=== PATIENT | female | born 1980 | race Two or more races ===

== ENCOUNTER 2020-05-17 21:09 | Emergency (ER) | payer SELFPAY ==
[~2020-05-17] VITALS: Ht 152.4 cm; Wt 104.3 kg
[~2020-05-17 21:09] MED LIST: ACET325; ACET325 PO; ALBU90OI INH; ATOR40TA PO; CEPH500 PO; Cleocin HCl150 MG PO; Coumadin10 MG PO; HYDACE5 PO; HYDMOR2; HYDR1TAB94 PO; IBUP600 PO; METPRE4DP PO; NAPR500 PO; Naprosyn500 MG PO; Norco 5-325 Ta1 EACH PO; ONDA4ODT MM; OXYACE5T PO; PROACE100 PO; PROC10 PO; PROC5 PO; PROM25 PO; Percocet 5-3251 EACH PO; Phenergan25 M1 PO; Prednisone20 MG PO; RXOXYACE PO; WARF10 PO; WARF3 PO; XARELTO20 MG PO; Zithromax250 MG PO
== END 2020-05-18 00:05 | disposition home or self-care (01) ==
LOC: ER 21:09
DX: M79.601 Pain in right arm (principal); F17.210 Nicotine dependence, cigarettes, uncomplicated; Z91.041 Radiographic dye allergy status; Z88.0 Allergy status to penicillin; Z91.018 Allergy to other foods; Z91.012 Allergy to eggs; Z79.52 Long term (current) use of systemic steroids; Z79.01 Long term (current) use of anticoagulants; Z79.899 Other long term (current) drug therapy; W22.8XXA Striking against or struck by other objects, initial encounter
CPT/HCPCS: 73110; 73130; 99283-25; A9270

== ENCOUNTER 2021-08-23 09:16 | Emergency (ER) | payer OTHER ==
[~2021-08-23] VITALS: Ht 152.4 cm; Wt 99.8 kg
[2021-08-23] MEDS ORDERED: PSEUDOEPHEDRINE30 M1 PO (10:53)
[2021-08-23] MEDS ORDERED: ALBU90OI INH (10:53)
[2021-08-23] MEDS ORDERED: CODEINE-GUAIFE120 M1 PO (10:53)
== END 2021-08-23 11:13 | disposition home or self-care (01) ==
LOC: ER 09:16
DX: J06.9 Acute upper respiratory infection, unspecified (principal); Z88.0 Allergy status to penicillin

== ENCOUNTER 2021-10-11 22:42 | Emergency (ER) | payer OTHER ==
[~2021-10-11] VITALS: Ht 157.5 cm; Wt 104.3 kg
[~2021-10-11 22:42] MED LIST changes: +CODEINE-GUAIFE120 M1 PO; +PSEUDOEPHEDRINE30 M1 PO
[2021-10-11] MEDS ORDERED: HYDR1TAB94 PO (23:54)
[2021-10-12] MEDS ORDERED: CRUTCH3 XX (00:05)
== END 2021-10-12 00:35 | disposition home or self-care (01) ==
LOC: ER 22:42
DX: S83.91XA Sprain of unspecified site of right knee, initial encounter (principal); Z88.0 Allergy status to penicillin; Z91.048 Other nonmedicinal substance allergy status; Z91.018 Allergy to other foods; Z91.012 Allergy to eggs; F17.200 Nicotine dependence, unspecified, uncomplicated; W19.XXXA Unspecified fall, initial encounter
CPT/HCPCS: 29505; 73130; 73562-RT; 99283-25; A9270

== ENCOUNTER 2022-01-23 16:19 | Emergency (ER) | payer OTHER ==
[~2022-01-23] VITALS: Ht 152.4 cm; Wt 117.9 kg
[~2022-01-23 16:19] MED LIST changes: +CRUTCH3 XX
[2022-01-23 17:30] LABS: Albumin, Blood 3.4 g/dL (3.4-5.0); Albumin/Globulin Ratio 0.8 (0.8-1.8); Bilirubin, Total 0.3 mg/dL (0.1-1.0); Calcium, Blood 8.7 mg/dL (8.5-10.1); Creatinine, Blood 0.47 mg/dL (0.40-1.00); Globulin, Blood 4.3 g/dL (2.2-4.0); Potassium, Blood 4.3 mmol/L (3.5-5.5); Total Protein, Blood 7.7 g/dL (6.4-8.2)
[2022-01-23 17:39] LABS: BASOPHILS ABSOLUTE AUTO 0.02 K/mm3 (0.00-0.23); BASOPHILS PERCENT AUTO 0 % (0-2); EOSINOPHILS ABSOLUTE AUTO 0.04 K/mm3 (0.00-0.68); EOSINOPHILS PERCENT AUTO 0 % (0-6); Hematocrit 37.3 % (33.0-51.0); Hemoglobin 12.3 g/dL (11.5-16.0); IMMATURE GRAN ABSOLUTE AUTO 0.03 K/mm3 (0.00-0.10); IMMATURE GRAN PERCENT AUTO 0 % (0-1); LYMPHOCYTES PERCENT AUTO 31 % (21-46); MONOCYTES ABSOLUTE AUTO 0.79 K/mm3 (0.16-1.47); MONOCYTES PERCENT AUTO 7 % (4-13); Mean Corpuscular HGB 33.2 pg (26.0-34.0); Mean Corpuscular Volume 101 fL (80-100); NEUTROPHILS ABSOLUTE AUTO 7.09 K/mm3 (1.96-9.15); NEUTROPHILS PERCENT AUTO 62 % (41-73); Platelet Count 310 K/mm3 (150-400); RDW Coefficient Variation 12.5 % (11.7-14.2); RDW Standard Deviation 46.5 fL (35.1-46.3); White Blood Cell Count 11.47 K/mm3 (4.00-11.30)
[2022-01-23] MEDS ORDERED: FURO20 PO (19:52)
== END 2022-01-23 20:07 | disposition home or self-care (01) ==
LOC: ER 16:19
PROVIDERS: Physician Assistant
DX: R07.89 Other chest pain (principal); R60.0 Localized edema; Z91.012 Allergy to eggs; Z88.0 Allergy status to penicillin; Z91.018 Allergy to other foods; Z95.828 Presence of other vascular implants and grafts
CPT/HCPCS: 36415; 71045; 74176; 80053; 83880; 84484; 85025; 85379; 93005; 93010

== ENCOUNTER 2022-03-10 15:51 | Emergency (ER) | payer OTHER ==
[~2022-03-10] VITALS: Ht 154.9 cm; Wt 113.4 kg
[~2022-03-10 15:51] MED LIST changes: +FURO20 PO
[2022-03-10 16:58] LABS: BASOPHILS ABSOLUTE AUTO 0.02 K/mm3 (0.00-0.23); BASOPHILS PERCENT AUTO 0 % (0-2); EOSINOPHILS ABSOLUTE AUTO 0.12 K/mm3 (0.00-0.68); EOSINOPHILS PERCENT AUTO 1 % (0-6); Hematocrit 36.3 % (33.0-51.0); Hemoglobin 12.1 g/dL (11.5-16.0); IMMATURE GRAN ABSOLUTE AUTO 0.02 K/mm3 (0.00-0.10); IMMATURE GRAN PERCENT AUTO 0 % (0-1); LYMPHOCYTES ABSOLUTE AUTO 1.26 K/mm3 (0.84-5.20); LYMPHOCYTES PERCENT AUTO 14 % (21-46); MONOCYTES ABSOLUTE AUTO 0.75 K/mm3 (0.16-1.47); MONOCYTES PERCENT AUTO 9 % (4-13); Mean Corpuscular HGB 33.2 pg (26.0-34.0); Mean Corpuscular HGB Conc 33.3 g/dL (31.5-36.5); Mean Corpuscular Volume 100 fL (80-100); Mean Platelet Volume 8.8 fL (9.1-12.4); NEUTROPHILS ABSOLUTE AUTO 6.64 K/mm3 (1.96-9.15); NEUTROPHILS PERCENT AUTO 75 % (41-73); Platelet Count 330 K/mm3 (150-400); RDW Coefficient Variation 12.7 % (11.7-14.2); RDW Standard Deviation 46.8 fL (35.1-46.3); Red Blood Cell Count 3.64 M/mm3 (3.80-5.20); White Blood Cell Count 8.81 K/mm3 (4.00-11.30)
[2022-03-10 16:59] LABS: Influenza A, PCR NEGATIVE (NEGATIVE); Influenza B, PCR NEGATIVE (NEGATIVE); Resp Syncytial Virus, PCR NEGATIVE (NEGATIVE)
[2022-03-10 17:18] LABS: Albumin, Blood 3.5 g/dL (3.4-5.0); Albumin/Globulin Ratio 0.8 (0.8-1.8); Bilirubin, Total 0.2 mg/dL (0.1-1.0); Bun/Creatinine Ratio 17.4 (12.0-20.0); Calcium, Blood 8.8 mg/dL (8.5-10.1); Creatinine, Blood 0.8 mg/dL (0.40-1.00); Globulin, Blood 4.3 g/dL (2.2-4.0); Potassium, Blood 3.9 mmol/L (3.5-5.5); Total Protein, Blood 7.8 g/dL (6.4-8.2)
[2022-03-10 18:29] LABS: SARS-Cov-2 (COVID-19) PCR, MMC POSITIVE (NEGATIVE)
[2022-03-10 21:33] LABS: Source, Urine Clean Catch
[2022-03-10 21:40] LABS: Bilirubin, Urine Neg (Neg); Blood, Urine Neg (Neg); Glucose Qualitative, Urine Neg (Neg); Ketones, Urine Neg (Neg); Leukocyte Esterase, Urine Neg (Neg); Nitrite, Urine Neg (Neg); Protein, Urine Neg (Neg); Urobilinogen, Urine NORM (Normal); pH, Urine 6.5 (5.0-8.0)
[2022-03-10 21:55] LABS: Appearance, Urine Clear (Clear); Color, Urine Yellow (P-Yellow)
[2022-03-10] MEDS ORDERED: ONDA4ODT SL (23:35)
[2022-03-10] MEDS ORDERED: Roxicodone5 MG PO (23:35)
== END 2022-03-11 00:19 | disposition home or self-care (01) ==
LOC: ER 15:51
PROVIDERS: Emergency Medicine; Physician Assistant
DX: U07.1 COVID-19 (principal); R51.9 Headache, unspecified; F17.200 Nicotine dependence, unspecified, uncomplicated; Z86.711 Personal history of pulmonary embolism; Z86.73 Personal history of transient ischemic attack (TIA), and cerebral infarction without residual deficits; Z79.899 Other long term (current) drug therapy; Z91.041 Radiographic dye allergy status; Z91.012 Allergy to eggs; Z88.0 Allergy status to penicillin; Z91.018 Allergy to other foods
CPT/HCPCS: 0241U; 36415; 70450; 80053; 81003; 85025; A9270; J1170; J1200; J1885; J2765; J7030

== ENCOUNTER 2022-10-04 16:25 | Emergency (ER) | payer OTHER ==
[~2022-10-04] VITALS: Ht 154.9 cm; Wt 119.3 kg
[~2022-10-04 16:25] MED LIST changes: +CATAPRES0.1 MG PO; +ONDA4ODT SL; +Roxicodone5 MG PO; +WARF7.5 PO
[2022-10-04] MEDS ORDERED: Percocet 5-3251 EACH PO (17:21)
== END 2022-10-04 17:41 | disposition home or self-care (01) ==
LOC: ER 16:25
DX: S80.11XA Contusion of right lower leg, initial encounter (principal); Z88.0 Allergy status to penicillin; Z91.018 Allergy to other foods; Z91.012 Allergy to eggs; Z79.899 Other long term (current) drug therapy; Z79.01 Long term (current) use of anticoagulants; W22.8XXA Striking against or struck by other objects, initial encounter
CPT/HCPCS: 29515; 73610; 99283-25; A9270

== ENCOUNTER 2023-02-12 05:43 | Emergency (ER) | payer OTHER ==
[~2023-02-12] VITALS: Ht 167.6 cm; Wt 124.7 kg
[2023-02-12] MEDS ORDERED: IBUP800 PO (06:39)
[2023-02-12 06:46] VITALS: BP 109/73
== END 2023-02-12 06:50 | disposition home or self-care (01) ==
LOC: ER 05:43
DX: S63.91XA Sprain of unspecified part of right wrist and hand, initial encounter (principal); W01.0XXA Fall on same level from slipping, tripping and stumbling without subsequent striking against object, initial encounter; G56.21 Lesion of ulnar nerve, right upper limb; Z88.0 Allergy status to penicillin; Z91.041 Radiographic dye allergy status; Z91.012 Allergy to eggs; Z91.018 Allergy to other foods
CPT/HCPCS: 73130; A9270

== ENCOUNTER 2023-06-04 22:27 | Emergency (ER) | payer OTHER ==
[~2023-06-04] VITALS: Ht 157.5 cm; Wt 117.9 kg
[~2023-06-04 22:27] MED LIST changes: +CYCL10 PO; +IBUP800 PO; +LIDO700A20 TOP
[2023-06-04 22:54] VITALS: BP 176/111
[2023-06-04 23:38] LABS: BASOPHILS ABSOLUTE AUTO 0.01 K/mm3 (0.00-0.23); BASOPHILS PERCENT AUTO 0 % (0-2); EOSINOPHILS ABSOLUTE AUTO 0.06 K/mm3 (0.00-0.68); EOSINOPHILS PERCENT AUTO 1 % (0-6); Hematocrit 36.1 % (33.0-51.0); Hemoglobin 11.7 g/dL (11.5-16.0); IMMATURE GRAN ABSOLUTE AUTO 0.01 K/mm3 (0.00-0.10); IMMATURE GRAN PERCENT AUTO 0 % (0-1); LYMPHOCYTES ABSOLUTE AUTO 4.02 K/mm3 (0.84-5.20); LYMPHOCYTES PERCENT AUTO 42 % (21-46); MONOCYTES ABSOLUTE AUTO 0.67 K/mm3 (0.16-1.47); MONOCYTES PERCENT AUTO 7 % (4-13); Mean Corpuscular HGB 32.3 pg (26.0-34.0); Mean Corpuscular HGB Conc 32.4 g/dL (31.5-36.5); Mean Corpuscular Volume 100 fL (80-100); Mean Platelet Volume 8.9 fL (9.1-12.4); NEUTROPHILS ABSOLUTE AUTO 4.78 K/mm3 (1.96-9.15); NEUTROPHILS PERCENT AUTO 50 % (41-73); Platelet Count 307 K/mm3 (150-400); RDW Standard Deviation 47.6 fL (35.1-46.3); Red Blood Cell Count 3.62 M/mm3 (3.80-5.20); White Blood Cell Count 9.55 K/mm3 (4.00-11.30)
[2023-06-04 23:47] LABS: International Normalized Ratio 0.95
[2023-06-04 23:57] LABS: Albumin, Blood 3.3 g/dL (3.4-5.0); Albumin/Globulin Ratio 0.8 (0.8-1.8); Bilirubin, Total 0.2 mg/dL (0.1-1.0); Bun/Creatinine Ratio 32.3 (12.0-20.0); Calcium, Blood 8.4 mg/dL (8.5-10.1); Creatinine, Blood 0.62 mg/dL (0.40-1.00); Globulin, Blood 4.2 g/dL (2.2-4.0); Potassium, Blood 4.3 mmol/L (3.5-5.5); Total Protein, Blood 7.5 g/dL (6.4-8.2)
[2023-06-05] LABS: Source, Urine Clean Catch
[2023-06-05 00:16] LABS: Bilirubin, Urine Neg (Neg); Blood, Urine Neg (Neg); Glucose Qualitative, Urine Neg (Neg); Ketones, Urine Neg (Neg); Leukocyte Esterase, Urine Neg (Neg); Nitrite, Urine Neg (Neg); Protein, Urine Neg (Neg); Urobilinogen, Urine 1+ (Normal)
[2023-06-05 00:32] LABS: Appearance, Urine Clear (Clear); Color, Urine Yellow (P-Yellow)
== END 2023-06-05 02:37 | disposition left against medical advice (07) ==
LOC: ER 22:27
PROVIDERS: Physician Assistant
DX: M54.9 Dorsalgia, unspecified (principal); W19.XXXA Unspecified fall, initial encounter; Z53.21 Procedure and treatment not carried out due to patient leaving prior to being seen by health care provider
CPT/HCPCS: 80053; 81003; 85025; 85610; 99281

== ENCOUNTER 2023-06-23 23:23 | Emergency (ER) | payer OTHER ==
[~2023-06-23] VITALS: Ht 152.4 cm; Wt 104.3 kg
[2023-06-23 23:41] VITALS: BP 111/73
== END 2023-06-24 01:08 | disposition home or self-care (01) ==
LOC: ER 23:23
DX: U07.1 COVID-19 (principal); Z88.0 Allergy status to penicillin; Z91.041 Radiographic dye allergy status; Z91.018 Allergy to other foods; Z91.012 Allergy to eggs; Z79.899 Other long term (current) drug therapy; Z79.01 Long term (current) use of anticoagulants
CPT/HCPCS: 96372; 99283-25; A9270; J1885

== ENCOUNTER 2024-03-25 18:36 | Observation (INO) | payer OTHER ==
[~2024-03-25] VITALS: Ht 154.9 cm; Wt 140.2 kg
[~2024-03-25 18:36] MED LIST changes: +OXYACE7.5T PO
[2024-03-25 19:21] LABS: BASOPHILS ABSOLUTE AUTO 0.01 K/mm3 (0.00-0.23); BASOPHILS PERCENT AUTO 0 % (0-2); EOSINOPHILS ABSOLUTE AUTO 0.08 K/mm3 (0.00-0.68); EOSINOPHILS PERCENT AUTO 1 % (0-6); Hematocrit 34.7 % (33.0-51.0); Hemoglobin 11.6 g/dL (11.5-16.0); IMMATURE GRAN ABSOLUTE AUTO 0.02 K/mm3 (0.00-0.10); IMMATURE GRAN PERCENT AUTO 0 % (0-1); LYMPHOCYTES ABSOLUTE AUTO 4.27 K/mm3 (0.84-5.20); LYMPHOCYTES PERCENT AUTO 42 % (21-46); MONOCYTES ABSOLUTE AUTO 0.53 K/mm3 (0.16-1.47); MONOCYTES PERCENT AUTO 5 % (4-13); Mean Corpuscular HGB 32.7 pg (26.0-34.0); Mean Corpuscular HGB Conc 33.4 g/dL (31.5-36.5); Mean Corpuscular Volume 98 fL (80-100); Mean Platelet Volume 8.5 fL (9.1-12.4); NEUTROPHILS ABSOLUTE AUTO 5.26 K/mm3 (1.96-9.15); NEUTROPHILS PERCENT AUTO 52 % (41-73); Platelet Count 341 K/mm3 (150-400); RDW Coefficient Variation 13.2 % (11.7-14.2); RDW Standard Deviation 47.8 fL (35.1-46.3); Red Blood Cell Count 3.55 M/mm3 (3.80-5.20); White Blood Cell Count 10.17 K/mm3 (4.00-11.30)
[2024-03-25 19:32] LABS: Albumin, Blood 3.2 g/dL (3.4-5.0); Albumin/Globulin Ratio 0.8 (0.8-1.8); Bilirubin, Total 0.2 mg/dL (0.1-1.0); Bun/Creatinine Ratio 25.6 (12.0-20.0); Calcium, Blood 8.2 mg/dL (8.5-10.1); Creatinine, Blood 0.59 mg/dL (0.40-1.00); Globulin, Blood 4.2 g/dL (2.2-4.0); Potassium, Blood 3.6 mmol/L (3.5-5.5); Total Protein, Blood 7.4 g/dL (6.4-8.2)
[2024-03-25] MEDS ORDERED: Metoclopramide HCl 5MG / ML 2ML Vial IV ONE (20:00)
[2024-03-25] MEDS ORDERED: DiphenhydrAMINE HCl 50 MG/ML 1ML Vial IV ONE (20:00)
[2024-03-25] MEDS ORDERED: Prochlorperazine Edisylate 10 mg Vial IV ONE (22:25)
[2024-03-26] MEDS ORDERED: NS 1,000 ML IV SCH ×2 (00:55→07:00)
[2024-03-26] MEDS ORDERED: Acetaminophen 325 MG TABLET PO PRN (00:55)
[2024-03-26] MEDS ORDERED: Ondansetron HCl 2 MG / ML 2ML Vial IV PRN (00:55)
[2024-03-26] MEDS ORDERED: Clopidogrel Bisulfate 75 MG Tab PO SCH (01:00)
[2024-03-26] MEDS ORDERED: Aspirin 81 MG Chew PO SCH (01:00)
--- NOTE | 2024-03-26 01:35 | NUR ---
ARRIVAL TO UNIT PT ARRIVED TO UNIT VIA GOURNEY. PT TRANSFERRED TO BED IN ROOM IND. A&O x4. PT STATES TOLERATING ORALS IN ED. PT STATES PAIN 5/10 R/T HEADACHE, PT DENIES PAIN ELSEWHERE. PT STATES NO NUMBNESS/TINGLING/WEAKNESS. AMBULATES/TOILETS INDEPENDENTLY. PT REQUESTS PADS R/T DAY 4 OF MENSES. PT AGREEABLE TO NPO STATUS AT THIS TIME; IV FLUIDS INFUSING PER EMAR. PT RELAYS EXTREME CONCERN R/T ANTICIPATED MRI. CALL LIGHT IN REACH, BED IN LOWEST POSITION, ORIENTED TO UNIT.
[2024-03-26 01:46] VITALS: BP 113/68
[2024-03-26 02:02] LABS: Source, Urine Clean Catch
[2024-03-26 02:26] LABS: Appearance, Urine Cloudy (Clear); Bilirubin, Urine Neg (Neg); Blood, Urine 5+ (Neg); Color, Urine Amber (P-Yellow); Glucose Qualitative, Urine Neg (Neg); Ketones, Urine Neg (Neg); Leukocyte Esterase, Urine 1+ (Neg); Nitrite, Urine Neg (Neg); Protein, Urine 2+ (Neg); Urobilinogen, Urine 1+ (Normal)
[2024-03-26 02:37] LABS: U Amphetamine Screen Not Detected; U Barbituate Screen Not Detected; U Benzodiazapine Screen Not Detected; U Buprenorphine Screen Not Detected; U Cannabinoids Screen Not Detected; U Cocaine Screen Not Detected; U Methadone Screen Not Detected; U Methamphetamine Screen Not Detected; U Opiates Screen Not Detected; U Oxycodone Screen Not Detected; U Phencyclidine Screen Not Detected
[2024-03-26 02:59] LABS: Bacteria Mod /hpf; Red Blood Cells, Urine TNTC /hpf (0-2); Squamous Epithelial Cells Not Seen /hpf (Few); White Blood Cells, Urine 0-2 /hpf (0-5)
--- NOTE | 2024-03-26 04:34 | NUR ---
SHIFT SUMMARY S/P ADMIT R/T STROKE. NO ACUTE CHANGES OVERNIGHT. VSS, TELE - NSR @ 79. NPO IN ANTICIPATION OF ECHO LATER TODAY. IV FLUIDS INFUSING PER EMAR. PT AMBULATES/TOILETS IND, NO BM OVERNIGHT. PT REPORTS NO NEW WEAKNESS/NUMBNESS. PT REPORTS MILD PAIN R/T HEADACHE, PT REPORTS TOLERABLE IN DARK ENVIRONMENT. PT SLEPT WELL OVERNIGHT. CALL LIGHT IN REACH, BED IN LOWEST POSITION, WILL REPORT TO DAY RN.
[2024-03-26 05:09] LABS: BASOPHILS ABSOLUTE AUTO 0.02 K/mm3 (0.00-0.23); BASOPHILS PERCENT AUTO 0 % (0-2); EOSINOPHILS PERCENT AUTO 2 % (0-6); Hematocrit 33.2 % (33.0-51.0); Hemoglobin 10.7 g/dL (11.5-16.0); IMMATURE GRAN ABSOLUTE AUTO 0.01 K/mm3 (0.00-0.10); IMMATURE GRAN PERCENT AUTO 0 % (0-1); LYMPHOCYTES ABSOLUTE AUTO 3.18 K/mm3 (0.84-5.20); LYMPHOCYTES PERCENT AUTO 50 % (21-46); MONOCYTES ABSOLUTE AUTO 0.53 K/mm3 (0.16-1.47); MONOCYTES PERCENT AUTO 8 % (4-13); Mean Corpuscular HGB 32.6 pg (26.0-34.0); Mean Corpuscular HGB Conc 32.2 g/dL (31.5-36.5); Mean Corpuscular Volume 101 fL (80-100); Mean Platelet Volume 8.8 fL (9.1-12.4); NEUTROPHILS ABSOLUTE AUTO 2.47 K/mm3 (1.96-9.15); NEUTROPHILS PERCENT AUTO 39 % (41-73); Platelet Count 311 K/mm3 (150-400); RDW Coefficient Variation 13.5 % (11.7-14.2); Red Blood Cell Count 3.28 M/mm3 (3.80-5.20); White Blood Cell Count 6.31 K/mm3 (4.00-11.30)
[2024-03-26] MEDS ORDERED: LORazepam 0.5 MG Tab PO PRN (05:25)
[2024-03-26 05:41] LABS: Albumin, Blood 2.9 g/dL (3.4-5.0); Albumin/Globulin Ratio 0.8 (0.8-1.8); Bilirubin, Total 0.3 mg/dL (0.1-1.0); Bun/Creatinine Ratio 21.3 (12.0-20.0); Calcium, Blood 8.2 mg/dL (8.5-10.1); Creatinine, Blood 0.61 mg/dL (0.40-1.00); Globulin, Blood 3.8 g/dL (2.2-4.0); Total Protein, Blood 6.7 g/dL (6.4-8.2)
[2024-03-26] MEDS ORDERED: CefTRIAXone Sodium 1,000 MG in NS 100 ML IV SCH (07:00)
[2024-03-26 08:15] VITALS: BP 113/72
[2024-03-26] MEDS ORDERED: Enoxaparin 40 MG/0.4 ML SYR SC SCH (09:00)
[2024-03-26] MEDS ORDERED: HYDROcodone 5-APAP 325 TAB PO PRN (10:00)
[2024-03-26] MEDS ORDERED: HYDROcodone 5-APAP 325 TAB PO ONE (10:00)
[2024-03-26 12:31] LABS: CHOL/HDL RATIO 3.1; Cholesterol 167 mg/dL (50-200); HDL Cholesterol 54 mg/dL (>39); LDL/HDL RATIO 1.6; Low Density Lipoprotein Chol 87 mg/dL (0-110); Triglycerides 129 mg/dL (30-160); Very Low Density Lipoprot Chol 25 mg/dL (6-32)
[2024-03-26] MEDS ORDERED: XARELTO20 MG PO (13:58)
[2024-03-26] MEDS ORDERED: ATOR40TA PO (13:58)
[2024-03-26] MEDS ORDERED: CLOP75 PO (13:58)
[2024-03-26] MEDS ORDERED: Clindamycin HCl 150 MG Cap PO SCH (14:00)
[2024-03-26] MEDS ORDERED: LevoFLOXacin 750 MG Tab PO SCH (14:43)
[2024-03-26] MEDS ORDERED: MetroNIDAZOLE 500 MG Tab PO SCH (14:44)
[2024-03-26 14:54] VITALS: BP 106/66
[2024-03-26] MEDS ORDERED: LEVO750 PO (16:06)
[2024-03-26] MEDS ORDERED: METR500 PO (16:07)
--- NOTE | 2024-03-26 16:37 | NUR ---
REPORT RECEIVED VERIFIED, PT A/O VERY PLEASENT QUIET AND C/O HEADACHE WHO STATES IS CHRONIC AND INTENSIFIED BEFORE LEFTSIDED WEAKNESS. PT STATED SHE HASNT HAD ANY INCREASED ISSUES AND WOULD LIKE TO LEAVE TODAY. CAROTIDS, DONE AND ECHO DONE THIS MORNING. 1200 PT TAKEN TO MRI BUT WAS NOT ABLE TO BE PREFORMED DUE TO SIZE. PT BACK AND REQUESTIONG TO GO HOME. AWAITING ECHO RESULTS BEFORE DISCHARGE. DENTAL HYGIENIST SAW PT AND STATED ABCESS IN TOOTH. ANTIBIOTIC ORDERED. 1600 RESULTS IN AND DISCHARGE ORDERS GIVEN AND FAXED AFTER EXPLAINING TO PT INSTRUCTIONS SHE VERBALIZED UNDERSTANDING. PT INSISITED SHE WOULD DRIVE SELF HOME, NO I TRIED TO CONVINVCE THAT MAYBE IT WOULD BE BETTER TO HAVE SOMEONE DRIVE SHE, DROVE HERSELF HOME. PT STRENGTH WAS EQUAL AND RETURNED TO BASELINE, PER PT.
[2024-03-27] MEDS ORDERED: Atorvastatin 40 MG Tab PO SCH (09:00)
== END 2024-03-26 16:29 | disposition home or self-care (01) ==
LOC: ER 18:36 → MEDS 18:37
PROVIDERS: Emergency Medicine; Family Medicine; ADMIT Internal Medicine
DX: I63.9 Cerebral infarction, unspecified (principal); G81.94 Hemiplegia, unspecified affecting left nondominant side; Z79.899 Other long term (current) drug therapy; D68.51 Activated protein C resistance; K04.7 Periapical abscess without sinus; Z88.0 Allergy status to penicillin; Z88.8 Allergy status to other drugs, medicaments and biological substances
CPT/HCPCS: 36415; 70450; 70496; 80053; 80061; 81001; 83036; 85025; 87086; 93005; 93010; 93306; 93880; 96365; 96366; 96372; 96374; 96375; 97162; 97530; 99285-25; A9270; G0378; J0696; J0780; J1200; J1650; J2765; J7030; Q9967

== ENCOUNTER 2024-10-13 16:58 | Emergency (ER) | payer OTHER ==
[~2024-10-13] VITALS: Ht 154.9 cm; Wt 141.1 kg
[~2024-10-13 16:58] MED LIST changes: +CLOP75 PO; +LEVO750 PO; +METR500 PO
[2024-10-13] MEDS ORDERED: OZEMPIC1 MG/0.72 SQ (17:21)
[2024-10-13 17:22] LABS: BASOPHILS ABSOLUTE AUTO 0.02 K/mm3 (0.00-0.23); BASOPHILS PERCENT AUTO 0 % (0-2); EOSINOPHILS ABSOLUTE AUTO 0.07 K/mm3 (0.00-0.68); EOSINOPHILS PERCENT AUTO 1 % (0-6); Hematocrit 35.6 % (33.0-51.0); Hemoglobin 11.6 g/dL (11.5-16.0); IMMATURE GRAN ABSOLUTE AUTO 0.02 K/mm3 (0.00-0.10); IMMATURE GRAN PERCENT AUTO 0 % (0-1); LYMPHOCYTES ABSOLUTE AUTO 3.53 K/mm3 (0.84-5.20); LYMPHOCYTES PERCENT AUTO 44 % (21-46); MONOCYTES ABSOLUTE AUTO 0.54 K/mm3 (0.16-1.47); MONOCYTES PERCENT AUTO 7 % (4-13); Mean Corpuscular HGB 31.4 pg (26.0-34.0); Mean Corpuscular HGB Conc 32.6 g/dL (31.5-36.5); Mean Corpuscular Volume 96 fL (80-100); Mean Platelet Volume 8.7 fL (9.1-12.4); NEUTROPHILS ABSOLUTE AUTO 3.81 K/mm3 (1.96-9.15); NEUTROPHILS PERCENT AUTO 48 % (41-73); Platelet Count 344 K/mm3 (150-400); RDW Standard Deviation 46.4 fL (35.1-46.3); White Blood Cell Count 7.99 K/mm3 (4.00-11.30)
[2024-10-13 17:49] LABS: Albumin, Blood 3.4 g/dL (3.4-5.0); Albumin/Globulin Ratio 0.8 (0.8-1.8); Bilirubin, Total 0.3 mg/dL (0.1-1.0); Bun/Creatinine Ratio 16.5 (12.0-20.0); Calcium, Blood 9.1 mg/dL (8.5-10.1); Creatinine, Blood 0.73 mg/dL (0.40-1.00); Globulin, Blood 4.3 g/dL (2.2-4.0); Potassium, Blood 3.9 mmol/L (3.5-5.5); Total Protein, Blood 7.7 g/dL (6.4-8.2)
[2024-10-13] MEDS ORDERED: MethylPREDNISolone Sod Succ 125 MG Vial IV ONE (19:35)
[2024-10-13] MEDS ORDERED: DiphenhydrAMINE HCl 50 MG/ML 1ML Vial IV ONE (19:35)
[2024-10-13] MEDS ORDERED: Famotidine 10 MG/ML 2ML Vial IV ONE (19:40)
[2024-10-13 21:30] VITALS: BP 122/62
[2024-10-13] MEDS ORDERED: ATOR40TA PO (21:51)
== END 2024-10-13 21:58 | disposition home or self-care (01) ==
LOC: ER 16:58
PROVIDERS: Physician Assistant
DX: I63.9 Cerebral infarction, unspecified (principal); G81.91 Hemiplegia, unspecified affecting right dominant side; F17.200 Nicotine dependence, unspecified, uncomplicated; Z88.0 Allergy status to penicillin; Z91.041 Radiographic dye allergy status; Z91.012 Allergy to eggs; Z91.013 Allergy to seafood; Z91.018 Allergy to other foods; Z79.01 Long term (current) use of anticoagulants; Z79.899 Other long term (current) drug therapy
CPT/HCPCS: 70450; 70496; 70498; 80053; 85025; 96374-59; 96375-59; 99284-25; J1200; J2919; Q9967